=== PATIENT | male | born 1970 | race Caucasian/White ===

== ENCOUNTER 2019-07-23 06:22 | Day surgery (SDC) | payer OTHER ==
[2019-07-22 09:49] VITALS: BP 129/85
[2019-07-22 10:22] LABS: BASOPHILS # (AUTO) 0.03 x10^3/uL (0-0.1); BASOPHILS % (AUTO) 1 % (0-1); EOSINOPHILS # (AUTO) 0.24 x10^3/uL (0-0.4); EOSINOPHILS % (AUTO) 5 % (1-7); LYMPHOCYTES # (AUTO) 1.75 x10^3/uL (1-3.4); LYMPHOCYTES % (AUTO) 34 % (22-44); MD NO; MEAN CORPUSCULAR HEMOGLOBIN 31.4 pg (27.5-34.5); MEAN CORPUSCULAR HGB CONC 33.6 g/dL (33.2-36.2); MEAN CORPUSCULAR VOLUME 93.2 fL (81-97); MEAN PLATELET VOLUME 6.7 fL (7.4-10.4); MONOCYTES # (AUTO) 0.41 x10^3/uL (0.2-0.8); MONOCYTES % (AUTO) 8 % (2-9); NEUTROPHILS # (AUTO) 2.76 x10^3/uL (1.8-6.8); NEUTROPHILS % (AUTO) 53 % (42-75); PLATELET COUNT 231 x10^3/uL (130-400); RED BLOOD COUNT 5.18 x10^6/uL (4.38-5.82); RED CELL DISTRIBUTION WIDTH 13.6 % (9.4-14.8)
[2019-07-22 10:32] LABS: ALANINE AMINOTRANSFERASE 27 U/L (12-78); ALBUMIN 3.5 g/dL (3.4-5.0); ANION GAP 6 mmol/L (5-15); CALCIUM 8.7 mg/dL (8.5-10.1); CHLORIDE 110 mmol/L (98-107)
[2019-07-22 10:35] LABS: ALKALINE PHOSPHATASE 78 U/L (45-117); BILIRUBIN,TOTAL 0.9 mg/dL (0.2-1.0); TOTAL PROTEIN 6.8 g/dL (6.4-8.2)
[~2019-07-23] VITALS: Ht 175.3 cm; Wt 75.0 kg
[~2019-07-23 06:22] MED LIST: None per pt
[2019-07-23] MEDS ORDERED: SODIUM CHLORIDE 0.9% 1,000 ML IV SCH (06:35)
[2019-07-23] MEDS ORDERED: LIDOCAINE 1%, 20ML ONE (06:52)
[2019-07-23] MEDS ORDERED: FENTANYL PF 100 MCG/2ML ONE (08:15)
[2019-07-23] MEDS ORDERED: MIDAZOLAM 1 MG/ML, 5ML ONE (08:15)
[2019-07-23] MEDS ORDERED: ISOPROTERENOL 0.2MG/ML, 5ML ONE (08:23)
[2019-07-23] MEDS ORDERED: FLEC50TA25 PO (09:51)
== END 2019-07-23 10:03 | disposition home or self-care (01) ==
LOC: CACL 06:22
PROVIDERS: ATTEND Internal Medicine Cardiovascular Disease
DX: I47.2 Ventricular tachycardia (principal)
CPT/HCPCS: 36415; 71046; 80053; 85025; 93620; 93623; J2250; J3010; 93613

== ENCOUNTER 2019-10-22 20:06 | Emergency (ER) | payer OTHER ==
[~2019-10-22] VITALS: Ht 175.3 cm; Wt 76.0 kg
[~2019-10-22 20:06] MED LIST changes: +FLEC50TA25 PO
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
--- NOTE | 2019-10-22 20:24 | NUR ---
MD AT BEDSIDE TO ASSESS PT AND DISCUSS POC
[2019-10-22] MEDS ORDERED: SODIUM CHLORIDE FLUSH 10ML SYR IVF ONE (20:30)
[2019-10-22 20:44] LABS: BASOPHILS # (AUTO) 0.02 x10^3/uL (0-0.1); BASOPHILS % (AUTO) 0 % (0-1); EOSINOPHILS % (AUTO) 2 % (1-7); LYMPHOCYTES % (AUTO) 33 % (22-44); MD NO; MEAN CORPUSCULAR HEMOGLOBIN 30.8 pg (27.5-34.5); MEAN CORPUSCULAR HGB CONC 33.7 g/dL (33.2-36.2); MEAN CORPUSCULAR VOLUME 91.3 fL (81-97); MONOCYTES # (AUTO) 0.39 x10^3/uL (0.2-0.8); MONOCYTES % (AUTO) 6 % (2-9); NEUTROPHILS # (AUTO) 3.49 x10^3/uL (1.8-6.8); NEUTROPHILS % (AUTO) 58 % (42-75); PLATELET COUNT 202 x10^3/uL (130-400); RED BLOOD COUNT 4.97 x10^6/uL (4.38-5.82); RED CELL DISTRIBUTION WIDTH 13.6 % (9.4-14.8)
[2019-10-22 20:57] LABS: ALBUMIN 3.5 g/dL (3.4-5.0); ANION GAP 6 mmol/L (5-15); CALCIUM 8.8 mg/dL (8.5-10.1); CHLORIDE 110 mmol/L (98-107); CREATININE 1.23 mg/dL (0.7-1.3); T4 (THYROXINE) 7.6 mcg/dL (4.5-12.1)
[2019-10-22 21:01] LABS: TROPONIN I < 0.015 ng/mL (0.000-0.045)
--- NOTE | 2019-10-22 21:29 | NUR ---
ALL RESULTS BACK AT THIS TIME CHART UP FOR RECHECK
[2019-10-22 21:52] VITALS: BP 131/92
--- NOTE | 2019-10-22 21:53 | NUR ---
Patient/Caregiver given discharge instructions and they have confirmed that they understand the instructions. Patient ambulatory with steady gait. PIV DC PRIOR TO PT LEAVING FACILITY
== END 2019-10-22 21:54 | disposition home or self-care (01) ==
LOC: ED 20:55
DX: R00.2 Palpitations (principal); R00.0 Tachycardia, unspecified; R42 Dizziness and giddiness
CPT/HCPCS: 36415; 80048; 82040; 84436; 84443; 84484; 85025; 93005; 99284

== ENCOUNTER 2019-12-12 19:05 | Inpatient (IN) | payer OTHER ==
[~2019-12-12] VITALS: Ht 175.3 cm; Wt 78.9 kg
[2019-12-12] MEDS ORDERED: MEXI200C PO (19:22)
[2019-12-12] MEDS ORDERED: ASPIRIN 81 MG TABLET CHEW ONE (19:28)
[2019-12-12] MEDS ORDERED: SODIUM CHLORIDE 0.9% 1,000ML IVBOLUS ONE (19:30)
[2019-12-12] MEDS ORDERED: SODIUM CHLORIDE FLUSH 10ML SYR IVF ONE (19:30)
[2019-12-12] MEDS ORDERED: ASPIRIN 81 MG TABLET CHEW PO ONE (19:30)
--- NOTE | 2019-12-12 19:44 | NUR ---
PT GIVEN MULTIPLE BLANKETS PER REQUEST. PT STATES OTHER THAN BEING COLD HE IS FEELING BETTER. POC DISCUSSED. PT AND DENY CURRENT NEEDS.
[2019-12-12 19:54] LABS: BASOPHILS # (AUTO) 0.03 x10^3/uL (0-0.1); BASOPHILS % (AUTO) 0 % (0-1); EOSINOPHILS # (AUTO) 0.11 x10^3/uL (0-0.4); EOSINOPHILS % (AUTO) 1 % (1-7); LYMPHOCYTES # (AUTO) 1.21 x10^3/uL (1-3.4); LYMPHOCYTES % (AUTO) 10 % (22-44); MD NO; MEAN CORPUSCULAR HEMOGLOBIN 31.3 pg (27.5-34.5); MEAN CORPUSCULAR HGB CONC 33.5 g/dL (33.2-36.2); MEAN CORPUSCULAR VOLUME 93.4 fL (81-97); MEAN PLATELET VOLUME 7.2 fL (7.4-10.4); MONOCYTES # (AUTO) 0.29 x10^3/uL (0.2-0.8); MONOCYTES % (AUTO) 3 % (2-9); NEUTROPHILS # (AUTO) 10.08 x10^3/uL (1.8-6.8); NEUTROPHILS % (AUTO) 86 % (42-75); PLATELET COUNT 222 x10^3/uL (130-400); RED BLOOD COUNT 4.97 x10^6/uL (4.38-5.82); RED CELL DISTRIBUTION WIDTH 13.7 % (9.4-14.8)
[2019-12-12 20:05] LABS: ALBUMIN 3.6 g/dL (3.4-5.0); ANION GAP 11 mmol/L (5-15); CALCIUM 9.2 mg/dL (8.5-10.1); CHLORIDE 108 mmol/L (98-107)
[2019-12-12 20:07] LABS: ALANINE AMINOTRANSFERASE 25 U/L (12-78); CREATININE 1.32 mg/dL (0.7-1.3)
[2019-12-12 20:12] LABS: ALKALINE PHOSPHATASE 73 U/L (45-117); BILIRUBIN,TOTAL 0.7 mg/dL (0.2-1.0); TOTAL PROTEIN 6.5 g/dL (6.4-8.2); TROPONIN I 0.031 ng/mL (0.000-0.045)
--- NOTE | 2019-12-12 20:49 | NUR ---
MD TO BEDSIDE TO DISCUSS ADMISSION. PT AGREEABLE. PT AND DENY CURRENT NEEDS.
[2019-12-12] MEDS ORDERED: BISACODYL 10 MG SUPP PR PRN (21:30)
[2019-12-12] MEDS ORDERED: ONDANSETRON ODT 4 MG PO PRN (21:30)
[2019-12-12] MEDS ORDERED: POLYETHYLENE GLYCOL 17 GM PACKET PO PRN (21:30)
[2019-12-12] MEDS ORDERED: ACETAMINOPHEN 325 MG TABLET PO PRN (21:30)
[2019-12-12] MEDS ORDERED: HEPARIN 5,000 UNITS/ML, 1ML SQ SCH (21:30)
[2019-12-12 22:30] VITALS: BP 111/69
[2019-12-12] MEDS: SODIUM CHLORIDE FLUSH 10ML SYR IVF SCH (22:51)
[2019-12-13 01:49] VITALS: BP 103/60
[2019-12-13 02:21] LABS: ANION GAP 6 mmol/L (5-15); CALCIUM 8.4 mg/dL (8.5-10.1); CHLORIDE 110 mmol/L (98-107); CREATININE 1.05 mg/dL (0.7-1.3)
[2019-12-13 02:37] LABS: BASOPHILS # (AUTO) 0.03 x10^3/uL (0-0.1); BASOPHILS % (AUTO) 0 % (0-1); EOSINOPHILS # (AUTO) 0.05 x10^3/uL (0-0.4); EOSINOPHILS % (AUTO) 1 % (1-7); LYMPHOCYTES # (AUTO) 1.91 x10^3/uL (1-3.4); LYMPHOCYTES % (AUTO) 22 % (22-44); MD NO; MEAN CORPUSCULAR HEMOGLOBIN 31.2 pg (27.5-34.5); MEAN CORPUSCULAR HGB CONC 33.5 g/dL (33.2-36.2); MEAN CORPUSCULAR VOLUME 93.1 fL (81-97); MEAN PLATELET VOLUME 7.1 fL (7.4-10.4); MONOCYTES # (AUTO) 0.43 x10^3/uL (0.2-0.8); MONOCYTES % (AUTO) 5 % (2-9); NEUTROPHILS # (AUTO) 6.12 x10^3/uL (1.8-6.8); NEUTROPHILS % (AUTO) 72 % (42-75); PLATELET COUNT 214 x10^3/uL (130-400); RED BLOOD COUNT 4.38 x10^6/uL (4.38-5.82); RED CELL DISTRIBUTION WIDTH 13.8 % (9.4-14.8)
[2019-12-13] MEDS ORDERED: HEPARIN 5,000 UNITS/ML, 1ML IV ONE (03:30)
[2019-12-13] MEDS ORDERED: HEPARIN 5,000 UNITS/ML, 1ML IV PRN (03:30)
[2019-12-13] MEDS ORDERED: HEPARIN 25,000 UNITS/250ML PMX 250 ML IV PRN (03:30)
[2019-12-13 06:53] VITALS: BP 108/60
[2019-12-13 08:00] LABS: TROPONIN I 0.291 ng/mL (0.000-0.045)
[2019-12-13] MEDS: SODIUM CHLORIDE FLUSH 10ML SYR IVF SCH ×2 (08:25→21:00)
[2019-12-13] MEDS: SENNA/DOCUSATE TABLET PO SCH (08:25)
[2019-12-13] MEDS ORDERED: MEXILETINE HCL 200 MG CAP PO SCH (09:00)
[2019-12-13 14:30] VITALS: BP 112/74
[2019-12-13 19:45] VITALS: BP 109/57
[2019-12-14 02:36] VITALS: BP 99/60
[2019-12-14 07:18] VITALS: BP 95/56
[2019-12-14] MEDS: SENNA/DOCUSATE TABLET PO SCH (09:00)
[2019-12-14] MEDS: SODIUM CHLORIDE FLUSH 10ML SYR IVF SCH ×2 (09:12→21:03)
[2019-12-14] MEDS ORDERED: FENTANYL PF 100 MCG/2ML ONE (10:25)
[2019-12-14] MEDS ORDERED: MIDAZOLAM 1 MG/ML, 5ML ONE (10:25)
[2019-12-14] MEDS ORDERED: LIDOCAINE 1%, 20ML ONE (10:25)
[2019-12-14] MEDS ORDERED: ISOPROTERENOL 0.2MG/ML, 5ML ONE ×2 (10:47→12:42)
[2019-12-14] MEDS ORDERED: ONDANSETRON 2MG/ML, 2ML ONE (11:39)
[2019-12-14] MEDS ORDERED: ATROPINE SYRINGE 0.1 MG/ML, 10ML ONE ×3 (11:41→12:43)
[2019-12-14 14:45] VITALS: BP 104/64
[2019-12-14] MEDS ORDERED: MEXILETINE HCL 200 MG CAP PO PRN (19:30)
[2019-12-14 19:55] VITALS: BP 116/72
[2019-12-15 01:35] VITALS: BP 108/66
[2019-12-15 06:15] VITALS: BP 109/72
[2019-12-15] MEDS: SENNA/DOCUSATE TABLET PO SCH (08:20)
[2019-12-15] MEDS: SODIUM CHLORIDE FLUSH 10ML SYR IVF SCH (09:00)
[2019-12-15] MEDS ORDERED: MEXI200C PO (11:27)
== END 2019-12-15 13:21 | disposition home or self-care (01) | DRG 274 ==
LOC: ED 21:22 → EDIP 21:25 → 5SO 22:26
PROC: 02583ZZ Destruction of Conduction Mechanism, Percutaneous Approach (ICD-10-PCS; principal; 2019-12-14)
PROC: 4A023FZ Measurement of Cardiac Rhythm, Percutaneous Approach (ICD-10-PCS; 2019-12-14)
PROC: 4A0234Z Measurement of Cardiac Electrical Activity, Percutaneous Approach (ICD-10-PCS; 2019-12-14)
PROC: 02K83ZZ Map Conduction Mechanism, Percutaneous Approach (ICD-10-PCS; 2019-12-14)
PROC: B2141ZZ Fluoroscopy of Right Heart using Low Osmolar Contrast (ICD-10-PCS; 2019-12-14)
DX: I47.2 Ventricular tachycardia (principal); I24.8 Other forms of acute ischemic heart disease; E86.0 Dehydration; G47.33 Obstructive sleep apnea (adult) (pediatric); I44.7 Left bundle-branch block, unspecified; Z80.9 Family history of malignant neoplasm, unspecified; Z82.0 Family history of epilepsy and other diseases of the nervous system; Z87.891 Personal history of nicotine dependence
CPT/HCPCS: 36415; 93566; 93623; 93654; 99285; J3490; 71045; 80048; 80053; 83735; 84443; 84484; 85025; 85520; 93005; 93017; 93306; C1769; C1894; G0378; J0461; J1644; J2250; J2405; J3010; C1730; C2630; J7030; Q9967

== ENCOUNTER 2021-01-23 18:57 | Inpatient (IN) | payer OTHER ==
[~2021-01-23] VITALS: Ht 175.3 cm; Wt 78.5 kg
[~2021-01-23 18:57] MED LIST changes: +MEXI200C PO
--- NOTE | 2021-01-23 19:08 | NUR ---
PT BIBA. PER EMS PT HAD A "COUPLE ROUNDS OF VTACH". PER PT HE HAS HX OF THE SAME AND HAD AN ABLATION IN 11/2019. PT RESTING IN [facility], FRIENDS AT BEDSIDE, DR. WILKES AT BEDSIDE FOR EVAL, MONITORING IN PLACE, NADN AT THIS TIME, WC. EKG DONE UPON ARRIVAL. LAB AT BEDSIDE FOR LAB DRAW.
[2021-01-23 19:26] LABS: BASOPHILS % (AUTO) 1 % (0-1); EOSINOPHILS % (AUTO) 1 % (1-7); LYMPHOCYTES % (AUTO) 17 % (22-44); MEAN CORPUSCULAR HEMOGLOBIN 31.7 pg (27.5-34.5); MEAN CORPUSCULAR HGB CONC 34.9 g/dL (33.2-36.2); MEAN PLATELET VOLUME 6.7 fL (7.4-10.4); MONOCYTES % (AUTO) 6 % (2-9); NEUTROPHILS % (AUTO) 76 % (42-75); PLATELET COUNT 211 x10^3/uL (130-400); RED BLOOD COUNT 5.18 x10^6/uL (4.38-5.82); RED CELL DISTRIBUTION WIDTH 13.7 % (9.4-14.8)
[2021-01-23] MEDS ORDERED: METOPROLOL TARTRATE 25 MG TAB PO ONE (19:30)
[2021-01-23] MEDS ORDERED: SODIUM CHLORIDE FLUSH 10ML SYR IVF ONE (19:30)
[2021-01-23 19:36] LABS: ALANINE AMINOTRANSFERASE 26 U/L (12-78); ALBUMIN 3.9 g/dL (3.4-5.0); ANION GAP 6 mmol/L (5-15); CHLORIDE 108 mmol/L (98-107); CREATININE 1.17 mg/dL (0.7-1.3)
[2021-01-23 19:41] LABS: ALKALINE PHOSPHATASE 80 U/L (45-117); BILIRUBIN,TOTAL 0.9 mg/dL (0.2-1.0); TOTAL PROTEIN 7.3 g/dL (6.4-8.2); TROPONIN I < 0.015 ng/mL (0.000-0.045)
[2021-01-23] MEDS ORDERED: METOPROLOL TARTRATE 25 MG TAB ONE (19:43)
[2021-01-23 21:21] VITALS: BP 122/77
[2021-01-23] MEDS ORDERED: ACETAMINOPHEN 325 MG TABLET PO PRN (22:30)
[2021-01-23] MEDS ORDERED: LABETALOL 5MG/ML, 20ML IVPush PRN (22:30)
[2021-01-24] MEDS ORDERED: POTASSIUM CHLORIDE 20 MEQ TAB.ER.PRT PO ONE (00:30)
[2021-01-24 02:54] VITALS: BP 105/58
[2021-01-24 04:53] LABS: ANION GAP 6 mmol/L (5-15); CHLORIDE 110 mmol/L (98-107); CREATININE 0.99 mg/dL (0.7-1.3)
[2021-01-24] MEDS ORDERED: METOPROLOL TARTRATE 25 MG TAB PO SCH (06:00)
[2021-01-24 07:15] VITALS: BP 107/64
== END 2021-01-24 10:39 | disposition home or self-care (01) | DRG 310 ==
LOC: ED 20:00 → EDIP 20:01 → ED 20:55 → 5SO 21:32 → DCLOUNGE 01-24 10:30
PROVIDERS: ADMIT Family Medicine; ATTEND Internal Medicine
DX: I47.2 Ventricular tachycardia (principal); E87.6 Hypokalemia; G20 Parkinson's disease; G47.33 Obstructive sleep apnea (adult) (pediatric); I10 Essential (primary) hypertension; I49.3 Ventricular premature depolarization; Z80.8 Family history of malignant neoplasm of other organs or systems; Z82.0 Family history of epilepsy and other diseases of the nervous system; Z86.16 Personal history of COVID-19; Z86.79 Personal history of other diseases of the circulatory system; Z79.899 Other long term (current) drug therapy
CPT/HCPCS: 36415; 71045; 80048; 80053; 83735; 83880; 84484; 85025; 93005; G0378